=== PATIENT | female | born 1990 | race Caucasian/White ===

== ENCOUNTER 2018-03-18 18:57 | Emergency (ER) | payer MEDICARE, MEDICAID ==
[~2018-03-18] VITALS: Ht 162.6 cm; Wt 53.5 kg
[2018-03-19 07:27] VITALS: BP 117/74
[2018-03-19 07:52] LABS: Urine Bacteria NONE SEEN /hpf (None Seen); Urine Blood 3+ /uL (Negative); Urine Mucus FEW (None Seen); Urine Specific Gravity 1.029 (1.001-1.035); Urine WBC 5 /hpf (0 - 5)
== END 2018-03-19 09:53 | disposition home or self-care (01) ==
LOC: ER 18:57
DX: N60.01 Solitary cyst of right breast (principal)
CPT/HCPCS: 76642; 81001; 81025